=== PATIENT | female | born 2000 | race Hispanic/Latino ===

== ENCOUNTER 2021-01-29 08:23 | Inpatient (IN) | payer MEDICAID, OTHER ==
[2021-01-29 08:54] VITALS: BMI 37.2
[2021-01-29] MEDS ORDERED: Carboprost 250 MCG/ML AMP IM PRN (09:03)
[2021-01-29] MEDS ORDERED: Ondansetron PF 4 MG/2 ML Vial IVP PRN (09:03)
[2021-01-29] MEDS ORDERED: Methylergonovine 0.2 MG/ML VIAL IM PRN (09:03)
[2021-01-29] MEDS ORDERED: Acetaminophen 500 MG TAB PO PRN (09:03)
[2021-01-29] MEDS ORDERED: Misoprostol 200 MCG TAB PR PRN (09:03)
[2021-01-29] MEDS ORDERED: Diphenoxylate HCl/Atropine Tablet PO PRN (09:03)
[2021-01-29] MEDS ORDERED: Ibuprofen 800 MG TAB PO PRN (09:03)
[2021-01-29] MEDS ORDERED: hydrALAZINE 20 MG/ML VIAL SLOW IVP PRN (09:03)
[2021-01-29] MEDS ORDERED: Butorphanol Tartrate 1 MG/ML VIAL SLOW IVP PRN (09:03)
[2021-01-29] MEDS ORDERED: HYDROcodone/Acetaminophen 5/325 mg Tablet PO PRN (09:03)
[2021-01-29] MEDS ORDERED: Promethazine HCl 25 MG/ML VIAL IM PRN (09:03)
[2021-01-29] MEDS ORDERED: Lidocaine 1% (PF) 30 ML VIAL SC PRN (09:03)
[2021-01-29] MEDS ORDERED: NS w/ Oxytocin 30 units 500 ML IV SCH ×2 (09:15)
[2021-01-29] MEDS ORDERED: NS w/ Oxytocin 30 units 500 ML IVPB SCH (09:15)
[2021-01-29 09:52] LABS: Hemoglobin 14.1 g/dL (12.0-15.5); Mean Corpuscular HGB CONC 34.5 g/dL (32.0-36.0); Mean Corpuscular Hemoglobin 30.5 pg (27.0-33.0); Mean Corpuscular Volume 88.3 fl (81.6-98.3); Mean Platelet Volume 11.8 fl (7.4-10.4); Platelet Count 267 10x3/uL (150-450); RBC Distribution Width 13.3 % (11.5-14.5); Red Blood Cell (RBC) Count 4.63 10x6/uL (3.90-5.03); White Blood Cell (WBC) Count 12.5 10x3/uL (3.5-10.5)
[2021-01-29 10:33] LABS: Hep B Surf Ag Non-Reactive S/CO (NonReactive); Syphilis Antibody Nonreactive (Nonreactive); Syphilis Antibody Index 0.03 S/CO (<1.00 Non-Reactive)
[2021-01-29 10:36] LABS: HBSAg Index 0.18 S/CO (0-0.99)
[2021-01-29 10:50] LABS: SARS-CoV-2 NAA Rapid Test Not Detected (NotDetected)
[2021-01-29] MEDS ORDERED: Fentanyl 2 mcg/Bup 0.1% Cadd 100 ML ONE (13:24)
[2021-01-29] MEDS: Lactated Ringer's 1,000 ML IV SCH (14:24)
[2021-01-30] MEDS ORDERED: Promethazine HCl 25 MG/ML VIAL IM PRN (00:22)
[2021-01-30] MEDS ORDERED: Boostrix 0.5 ML (Tdap) VIAL IM ONE (00:22)
[2021-01-30] MEDS ORDERED: Benzocaine-Menthol 82.5 ML CAN TOP PRN (00:22)
[2021-01-30] MEDS ORDERED: Ondansetron PF 4 MG/2 ML Vial IVP PRN (00:22)
[2021-01-30] MEDS ORDERED: Milk Of Magnesia 30 ML UDCUP PO PRN (00:22)
[2021-01-30] MEDS ORDERED: diphenhydrAMINE 25 MG CAP PO PRN (00:22)
[2021-01-30] MEDS ORDERED: Bisacodyl 10 MG SUPP PR PRN (00:22)
[2021-01-30] MEDS ORDERED: HYDROcodone/Acetaminophen 5/325 mg Tablet PO PRN (00:22)
[2021-01-30] MEDS ORDERED: hydrALAZINE 20 MG/ML VIAL SLOW IVP PRN (00:22)
[2021-01-30] MEDS ORDERED: NS w/ Oxytocin 30 units 500 ML IV SCH (00:22)
[2021-01-30] MEDS ORDERED: Lanolin Ointment 7 GM TUBE TOP PRN (00:22)
[2021-01-30] MEDS: Ibuprofen 800 MG TAB PO SCH ×4 (00:57→21:09)
[2021-01-30] MEDS: Lactated Ringer's 1,000 ML IV SCH (07:34)
[2021-01-30] MEDS: Ferrous Sulfate 325 MG TAB PO SCH ×2 (07:36→15:49)
[2021-01-30] MEDS: Prenatal Vitamin 1 TAB PO SCH ×3 (09:36→09:41)
[2021-01-30] MEDS: HYDROcodone/Acetaminophen 5/325 mg Tablet PO PRN ×2 (09:36→17:33)
[2021-01-30] MEDS: Docusate Calcium (SURFAK) 240 MG CAP PO SCH ×2 (09:38→21:09)
[2021-01-31] MEDS: Ibuprofen 800 MG TAB PO SCH ×2 (04:49→13:35)
[2021-01-31] MEDS: Ferrous Sulfate 325 MG TAB PO SCH (07:43)
[2021-01-31] MEDS: HYDROcodone/Acetaminophen 5/325 mg Tablet PO PRN (08:24)
[2021-01-31] MEDS: Docusate Calcium (SURFAK) 240 MG CAP PO SCH (08:24)
[2021-01-31] MEDS: Prenatal Vitamin 1 TAB PO SCH (08:24)
[2021-01-31 11:36] VITALS: BP 95/52; TEMP 98.2
== END 2021-01-31 14:15 | disposition home or self-care (01) | DRG 807 ==
LOC: CSHLD/OP 08:23 → CSHLD 10:53 → CSHPP 01-30 00:05
PROVIDERS: ADMIT Family Medicine; ATTEND Family Medicine
PROC: 10E0XZZ Delivery of Products of Conception, External Approach (ICD-10-PCS; principal; 2021-01-29)
PROC: 0KQM0ZZ Repair Perineum Muscle, Open Approach (ICD-10-PCS; 2021-01-29)
DX: O70.1 Second degree perineal laceration during delivery (principal); Z37.0 Single live birth; Z20.822 Contact with and (suspected) exposure to COVID-19; Z3A.38 38 weeks gestation of pregnancy
CPT/HCPCS: 36415; 51702; 85027; 86780; 86850; 86900; 86901; 87340; 99285; J2590; J7120; U0002